=== PATIENT | female | born 1930 | race Caucasian/White ===

== ENCOUNTER 2016-11-29 15:10 | Inpatient (IN) | payer OTHER ==
[~2016-11-29] VITALS: Ht 160 cm; Wt 69.8 kg
[~2016-11-29 15:10] MED LIST: AMLODIPINE BESYL5 MG PO; ASCORBIC ACID500 M3 PO; ASPIR 8181 M1 PO; BISACODYL5 MG PO; BUPROPION HCL150 M2 PO; BUPROPION HCL75 MG PO; CALCIUM CARB1 TABLET PO; CYANOCOBALAM1000 MCG PO; DAILY VITE1 EAC1 PO; FLAGYL500 MG PO; FLEXERIL10 MG PO; FOLIC ACID1 MG PO; LANOXIN,DIGI0.125 MG PO; LANOXIN125 MCG PO; LASIX20 MG PO; LEVEMIR FL100 UNIT/1 SC; LEVEMIR100 UNIT/2 SC; LIDOCAINE700 MG TD; LIPITOR20 MG PO; LO-DOSE ASPIRIN81 M1 PO; LOPRESSOR50 MG PO; LOSARTAN POTAS100 MG PO; LOVENOX40 MG/0.4 SC; LYRICA100 MG PO; LYRICA150 MG PO; MILK OF MAGNESI10 ML PO; MYSOLINE50 MG PO; NORCO 5/3251 TABLET PO; NORVASC5 MG PO; OXYCODONE HCL5 MG PO; Ocean Nasal 0.65% NS; PANTOPRAZOLE SO40 MG PO; PLAVIX75 MG PO; PREDNISONE5 MG PO; PROTONIX40 MG PO; PROVENTIL,2.5 MG/0.5 AEROSOL; SENNA8.6 MG PO; TAMIFLU75 MG PO; THERAGRAN1 TABLET PO; TOPROL XL50 MG PO; TORSEMIDE20 MG PO; TYLENOL EXTRA500 MG PO; TYLENOL REGULA325 MG PO; VENTOLIN HFA18 GM IH; VITAMIN B12-FO1 EACH PO; VITAMIN D32000 UNI1 PO; VITAMIN D50000 UNI2 PO; WELLBUTRIN SR150 MG PO; ZESTRIL,PRINIVI10 MG PO
[2016-11-29 16:17] LABS: HEMATOCRIT 36.7 % (36.0-46.0); MCH 32.5 PG (29.0-34.0); MCV 98.7 FL (83-99); PLATELET COUNT 100 K/uL (156-360); RBC DIS.WIDTH-CV 14.3 % (11.8-14.6); RBC DIS.WIDTH-SD 51.8 % (39-53); RED BLOOD COUNT 3.72 M/uL (3.80-5.20); WHITE BLOOD COUNT 20.9 K/uL (4.1-10.2)
[2016-11-29 16:26] LABS: CHLORIDE 103 mEq/L (99-109); POTASSIUM 3.8 mEq/L (3.7-5.4); SODIUM 145 mEq/L (136-147)
[2016-11-29 16:28] LABS: GLUCOSE 216 mg/dL (70-99)
[2016-11-29 16:29] LABS: ANION GAP 14 MEQ/L (2-14)
[2016-11-29 16:30] LABS: TOTAL BILIRUBIN 0.5 mg/dL (0.0-1.0)
[2016-11-29 16:32] LABS: ALKALINE PHOSPHATASE 51 IU/L (3-129); GFR ESTIMATE (CALCULATED) 50 mL/min/
[2016-11-29 16:33] LABS: UREA NITROGEN (BUN) 17 mg/dL (9-23)
[2016-11-29 16:35] LABS: LIPASE 5 U/L (1.0-51.0)
[2016-11-29 19:42] LABS: ADD MIUA? YES; BILIRUBIN NEGATIVE; BLOOD NEGATIVE; COLOR YELLOW ((YELLOW)); GLUCOSE (STRIP) NEGATIVE; KETONES NEGATIVE; LEUKOCYTES NEGATIVE; NITRITE NEGATIVE; PROTEIN (STRIP) 30; SPECIFIC GRAVITY 1.015 (1.000-1.030); UROBILINOGEN 0.2 MG/DL (0.2-1.0)
[2016-11-29 19:49] LABS: BACTERIA 3+ /HPF; EPITHELIAL CELLS RARE /HPF; MUCUS TRACE /LPF; RED BLOOD CELLS 0-5 /HPF (0-5); UCUL ADDED? YES
[2016-11-29] MEDS ORDERED: PANTOPRAZOLE SO40 MG PO (22:34)
[2016-11-29] MEDS ORDERED: LYRICA100 MG PO ×3 (22:35→23:58)
[2016-11-29] MEDS ORDERED: PRIMIDONE50 MG PO (22:35)
[2016-11-29] MEDS ORDERED: TORSEMIDE20 MG PO (22:35)
[2016-11-29] MEDS ORDERED: GLIPIZIDE XL5 MG PO (22:35)
[2016-11-29] MEDS ORDERED: LEVEMIR FL100 UNIT/1 SC ×5 (22:36→23:56)
[2016-11-29] MEDS ORDERED: COMBIVENT RESPIM4 GM IH (22:37)
[2016-11-29] MEDS ORDERED: FLONASE16 G1 BOTH NARES (22:37)
[2016-11-29] MEDS ORDERED: PROMETHAZINE12.5 M1 PO (22:38)
[2016-11-29 23:08] VITALS: BP 131/59
[2016-11-29] MEDS ORDERED: LYRICA150 MG PO (23:58)
[2016-11-30] VITALS (8 sets, daily range): BP systolic 122–145; BP diastolic 58–67
[2016-11-30 07:11] LABS: HEMATOCRIT 31.4 % (36.0-46.0); MCH 33.7 PG (29.0-34.0); MCHC 32.8 G/DL (30.0-36.0); MCV 102.6 FL (83-99); MEAN PLAT.VOLUME 12.6 uM^3 (9.5-12.4); PLATELET COUNT 81 K/uL (156-360); RBC DIS.WIDTH-CV 14.5 % (11.8-14.6); RED BLOOD COUNT 3.06 M/uL (3.80-5.20); WHITE BLOOD COUNT 9.5 K/uL (4.1-10.2)
[2016-11-30 08:29] LABS: ANION GAP 9 MEQ/L (2-14); CHLORIDE 104 MEQ/L (99-109); GFR ESTIMATE (CALCULATED) > 59 mL/min/; GLUCOSE 140 mg/dL (70-99); POTASSIUM 3.5 MEQ/L (3.7-5.4); SAMPLE HEMOLYSIS CHECK 0; SAMPLE ICTERIC CHECK 0; SAMPLE LIPEMIA CHECK 0; SODIUM 144 MEQ/L (136-147); UREA NITROGEN (BUN) 14 mg/dL (9-23)
[2016-11-30 10:45] LABS: Estimated Average Glucose 180 mg/dL (70-123); HEMOGLOBIN A1c (GLYCOHEMOGLOB) 7.9 % HGB (Below 5.7)
[2016-11-30 11:14] LABS: FERRITIN 140 NG/ML (10-291)
[2016-11-30 12:05] LABS: POINT-OF-CARE METER ID UU14208750
[2016-11-30 12:36] LABS: ABSOLUTE RETICULOCYTE CT. 0.1 M/uL (0.02-0.08); IMM.RETIC FRACTION 12.1 % (3-19); RETIC HGB EQUIVALENT 33.5 (28-36); RETICULOCYTE COUNT 1.9 % (0.5-1.8)
[2016-11-30 14:03] LABS: IRON 16 MCG/DL (35-150)
[2016-11-30 16:25] LABS: POINT-OF-CARE METER ID UU14208750
[2016-11-30 21:36] LABS: POINT-OF-CARE METER ID UU14208750
[2016-12-01 06:14] LABS: EOSINOPHIL (%) 1.5 % (0-5); EOSINOPHIL COUNT 0.1 K/uL (0-0.3); HEMATOCRIT 29.1 % (36.0-46.0); IMMATURE GRANULOCYTE (%) 0.5 % (0.0-0.7); LYMPHOCYTE COUNT 1.1 K/uL (1.0-2.8); MCH 34.2 PG (29.0-34.0); MCV 103.6 FL (83-99); MEAN PLAT.VOLUME 12.8 uM^3 (9.5-12.4); MONOCYTE (%) 6.6 % (3-12); MONOCYTE COUNT 0.5 K/uL (0-0.8); NEUTROPHIL (%) 76.7 % (45-76); PLATELET COUNT 91 K/uL (156-360); RBC DIS.WIDTH-CV 14.2 % (11.8-14.6); RBC DIS.WIDTH-SD 53.9 % (39-53); RED BLOOD COUNT 2.81 M/uL (3.80-5.20); WHITE BLOOD COUNT 7.8 K/uL (4.1-10.2)
[2016-12-01 06:35] LABS: ALKALINE PHOSPHATASE 38 IU/L (3-129); ANION GAP 7 MEQ/L (2-14); CHLORIDE 107 MEQ/L (99-109); GFR ESTIMATE (CALCULATED) > 59 mL/min/; GLUCOSE 125 mg/dL (70-99); SAMPLE HEMOLYSIS CHECK 0; SAMPLE ICTERIC CHECK 0; SAMPLE LIPEMIA CHECK 0; SODIUM 143 MEQ/L (136-147); TOTAL BILIRUBIN 0.4 MG/DL (0.0-1.0); UREA NITROGEN (BUN) 13 mg/dL (9-23)
[2016-12-01 06:45] LABS: POINT-OF-CARE METER ID UU14208750
[2016-12-01 07:12] VITALS: BP 143/66
[2016-12-01 09:20] LABS: INTER. NORMALIZED RATIO 1.3; PROTHROMBIN TIME 14.5 SEC (10.2-12.9)
[2016-12-01 09:23] LABS: PTT 46.4 SEC (25-37)
[2016-12-01 10:55] LABS: BASE EXCESS 6.3 mEq/L (-3 to +3); BICARBONATE 30.6 mEq/L (22-26); CARBOXY HGB 2.1 % (0-5); METHEMOGLOBIN 1.4 % (0-1.5); PCO2 42 mm Hg (35-45); PO2 59 mm Hg (80-100); pH 7.47 (7.35-7.45)
[2016-12-01 10:56] LABS: COMMENTS - BLOOD GASES +C; DEVICE NC; O2 FLOW 6 L/MIN; SITE RR +A; TOTAL RESP RATE 24 resp/min
[2016-12-01 11:45] VITALS: BP 151/72
[2016-12-01 11:52] LABS: POINT-OF-CARE METER ID UU14208750
[2016-12-01 12:05] LABS: TROP-I INTERPRETATION POSITIVE
[2016-12-01 12:12] LABS: TROPONIN-I 1.23 ng/mL (0.0-0.30)
[2016-12-01 15:25] VITALS: BP 146/87
[2016-12-01 16:17] LABS: POINT-OF-CARE METER ID UU13113698
[2016-12-01 18:32] LABS: INTER. NORMALIZED RATIO 1.3; PROTHROMBIN TIME 14.4 SEC (10.2-12.9)
[2016-12-01 18:35] LABS: PTT 67.1 SEC (25-37)
[2016-12-01 18:42] LABS: TROP-I INTERPRETATION POSITIVE; TROPONIN-I 0.98 ng/mL (0.0-0.30)
[2016-12-01 20:40] VITALS: BP 159/65
[2016-12-02] VITALS (7 sets, daily range): BP systolic 134–174; BP diastolic 58–76
[2016-12-02 05:26] LABS: INTER. NORMALIZED RATIO 1.3; PROTHROMBIN TIME 14.2 SEC (10.2-12.9)
[2016-12-02 05:36] LABS: EOSINOPHIL (%) 0 % (0-5); HEMATOCRIT 29.5 % (36.0-46.0); IMMATURE GRANULOCYTE (%) 0.9 % (0.0-0.7); IMMATURE GRANULOCYTE COUNT 0.1 K/uL; INSTRUMENT ABS NEUTROPHIL CT 5.4 K/uL; LYMPHOCYTE COUNT 0.6 K/uL (1.0-2.8); MCH 33.7 PG (29.0-34.0); MCHC 33.2 G/DL (30.0-36.0); MCV 101.4 FL (83-99); MEAN PLAT.VOLUME 13.4 uM^3 (9.5-12.4); MONOCYTE (%) 4.9 % (3-12); MONOCYTE COUNT 0.3 K/uL (0-0.8); NEUTROPHIL (%) 84.4 % (45-76); NEUTROPHIL COUNT 5.4 K/uL (1.8-6.4); PLATELET COUNT 81 K/uL (156-360); RBC DIS.WIDTH-CV 13.8 % (11.8-14.6); RBC DIS.WIDTH-SD 51.4 % (39-53); RED BLOOD COUNT 2.91 M/uL (3.80-5.20); WHITE BLOOD COUNT 6.3 K/uL (4.1-10.2)
[2016-12-02 06:21] LABS: ALKALINE PHOSPHATASE 50 IU/L (3-129); ANION GAP 9 MEQ/L (2-14); CHLORIDE 105 MEQ/L (99-109); GFR ESTIMATE (CALCULATED) > 59 mL/min/; GLUCOSE 245 mg/dL (70-99); SAMPLE HEMOLYSIS CHECK 0; SAMPLE ICTERIC CHECK 0; SAMPLE LIPEMIA CHECK 0; SODIUM 141 MEQ/L (136-147); TOTAL BILIRUBIN 0.4 MG/DL (0.0-1.0); UREA NITROGEN (BUN) 14 mg/dL (9-23)
[2016-12-02 08:08] LABS: POINT-OF-CARE METER ID UU13113803; POINT-OF-CARE USER ID ENVKC36
[2016-12-02 12:02] LABS: POINT-OF-CARE USER ID ENVKC36
[2016-12-02 12:09] LABS: INTER. NORMALIZED RATIO 1.2; PROTHROMBIN TIME 13.8 SEC (10.2-12.9)
[2016-12-02 12:12] LABS: PTT 81.9 SEC (25-37)
[2016-12-02 13:38] LABS: TROP-I INTERPRETATION INDETERMINATE; TROPONIN-I 0.34 ng/mL (0.0-0.30)
[2016-12-02 16:38] LABS: POINT-OF-CARE USER ID ENVKC36
[2016-12-03 04:49] VITALS: BP 130/70
[2016-12-03 08:40] VITALS: BP 158/62
[2016-12-03 12:51] VITALS: BP 142/72
[2016-12-03 13:31] VITALS: BP 130/78
[2016-12-03 17:21] VITALS: BP 162/54
[2016-12-03 21:09] VITALS: BP 164/71
[2016-12-03 21:12] LABS: POINT-OF-CARE METER ID UU13113698
[2016-12-04 00:36] VITALS: BP 186/79
[2016-12-04 04:29] VITALS: BP 168/78
[2016-12-04 07:57] LABS: POINT-OF-CARE METER ID UU13113781
[2016-12-04 08:25] VITALS: BP 148/70
[2016-12-04 12:10] LABS: POINT-OF-CARE METER ID UU13113781
[2016-12-04 13:01] VITALS: BP 142/78
[2016-12-04 17:03] LABS: POINT-OF-CARE METER ID UU13113781
[2016-12-04 17:36] VITALS: BP 130/58
[2016-12-04 19:51] VITALS: BP 149/63
[2016-12-05] VITALS (7 sets, daily range): BP systolic 138–189; BP diastolic 60–93
[2016-12-05 06:10] LABS: EOSINOPHIL (%) 0.3 % (0-5); HEMATOCRIT 29.4 % (36.0-46.0); IMMATURE GRANULOCYTE COUNT 0.1 K/uL; INSTRUMENT ABS NEUTROPHIL CT 4.7 K/uL; LYMPHOCYTE COUNT 0.7 K/uL (1.0-2.8); MCH 33.3 PG (29.0-34.0); MCHC 33.7 G/DL (30.0-36.0); MONOCYTE (%) 7.3 % (3-12); MONOCYTE COUNT 0.4 K/uL (0-0.8); NEUTROPHIL (%) 78.7 % (45-76); NEUTROPHIL COUNT 4.7 K/uL (1.8-6.4); RBC DIS.WIDTH-CV 13.4 % (11.8-14.6); RBC DIS.WIDTH-SD 48.3 % (39-53); RED BLOOD COUNT 2.97 M/uL (3.80-5.20); WHITE BLOOD COUNT 5.9 K/uL (4.1-10.2)
[2016-12-05 06:13] LABS: PLATELET COUNT 106 K/uL (156-360)
[2016-12-05 06:14] LABS: ANION GAP 8 MEQ/L (2-14); CHLORIDE 103 MEQ/L (99-109); GFR ESTIMATE (CALCULATED) > 59 mL/min/; GLUCOSE 202 mg/dL (70-99); POTASSIUM 4.4 MEQ/L (3.7-5.4); SAMPLE HEMOLYSIS CHECK 0; SAMPLE ICTERIC CHECK 0; SAMPLE LIPEMIA CHECK 0; SODIUM 141 MEQ/L (136-147)
[2016-12-05 06:18] LABS: UREA NITROGEN (BUN) 22 mg/dL (9-23)
[2016-12-05 11:20] LABS: POINT-OF-CARE METER ID UU13113698
[2016-12-05 20:56] LABS: POINT-OF-CARE METER ID UU13113698
[2016-12-06 03:26] VITALS: BP 138/70
[2016-12-06 07:42] LABS: POINT-OF-CARE METER ID UU13113781
[2016-12-06 07:59] VITALS: BP 150/67
[2016-12-06 09:18] LABS: MCH 33.9 PG (29.0-34.0); MCHC 34.1 G/DL (30.0-36.0); MCV 99.4 FL (83-99); MEAN PLAT.VOLUME 12.6 uM^3 (9.5-12.4); NRBC (%) 0.2 /100 WBC (0-0); RBC DIS.WIDTH-CV 13.7 % (11.8-14.6); RBC DIS.WIDTH-SD 49.7 % (39-53); RED BLOOD COUNT 3.42 M/uL (3.80-5.20); WHITE BLOOD COUNT 10.3 K/uL (4.1-10.2)
[2016-12-06 09:22] LABS: PLATELET COUNT 140 K/uL (156-360)
[2016-12-06 10:14] LABS: ANION GAP 10 MEQ/L (2-14); CHLORIDE 103 MEQ/L (99-109); GFR ESTIMATE (CALCULATED) > 59 mL/min/; POTASSIUM 3.9 MEQ/L (3.7-5.4); SAMPLE HEMOLYSIS CHECK 0; SAMPLE ICTERIC CHECK 0; SAMPLE LIPEMIA CHECK 0; SODIUM 143 MEQ/L (136-147); UREA NITROGEN (BUN) 20 mg/dL (9-23)
[2016-12-06 10:16] LABS: GLUCOSE 107 mg/dL (70-99)
[2016-12-06 11:35] VITALS: BP 167/70
[2016-12-06 12:08] LABS: POINT-OF-CARE METER ID UU13113781
[2016-12-06 15:38] VITALS: BP 142/60
[2016-12-06 16:27] LABS: POINT-OF-CARE METER ID UU13113781
[2016-12-06 19:30] VITALS: BP 132/59
[2016-12-06 23:45] VITALS: BP 147/65
[2016-12-07 03:30] VITALS: BP 142/66
[2016-12-07 05:50] LABS: MCH 32.9 PG (29.0-34.0); MCHC 32.9 G/DL (30.0-36.0); MEAN PLAT.VOLUME 13.1 uM^3 (9.5-12.4); PLATELET COUNT 140 K/uL (156-360); RBC DIS.WIDTH-CV 13.7 % (11.8-14.6); RBC DIS.WIDTH-SD 49.8 % (39-53); WHITE BLOOD COUNT 7.5 K/uL (4.1-10.2)
[2016-12-07 06:19] LABS: ANION GAP 9 MEQ/L (2-14); CHLORIDE 104 MEQ/L (99-109); GFR ESTIMATE (CALCULATED) > 59 mL/min/; GLUCOSE 140 mg/dL (70-99); POTASSIUM 4.2 MEQ/L (3.7-5.4); SAMPLE HEMOLYSIS CHECK 1; SAMPLE ICTERIC CHECK 0; SAMPLE LIPEMIA CHECK 0; SODIUM 140 MEQ/L (136-147); UREA NITROGEN (BUN) 24 mg/dL (9-23)
[2016-12-07 07:21] VITALS: BP 151/69
[2016-12-07 11:33] LABS: POINT-OF-CARE METER ID UU13113803
[2016-12-07 11:35] VITALS: BP 151/65
[2016-12-07] MEDS ORDERED: CEFDINIR300 MG PO (12:10)
[2016-12-07] MEDS ORDERED: GUAIFENESIN WI120 M1 PO (12:14)
[2016-12-07] MEDS ORDERED: BENZONATATE100 MG PO (12:14)
[2016-12-07] MEDS ORDERED: ADVAIR HFA120 INHALA IH (12:14)
[2016-12-07] MEDS ORDERED: PREDNISONE20 MG PO (12:21)
[2016-12-07] MEDS ORDERED: OXYGEN MC (12:30)
[2016-12-07] MEDS ORDERED: NORCO 5/3251 TABLET PO (12:45)
== END 2016-12-07 15:26 | DRG 190 ==
LOC: EME 15:10 → 2EAST 21:30 → EDOF 21:30 → ENRESERV 21:31 → 2EAST 22:34 → ENRESERV 12-01 13:33 → 4EAST 12-01 15:20
PROVIDERS: Hospitalist; Internal Medicine; Physician Assistant; Radiology Diagnostic Radiology; Student in an Organized Health Care Education/Training Program
DX: J44.0 Chronic obstructive pulmonary disease with (acute) lower respiratory infection (principal); J18.1 Lobar pneumonia, unspecified organism; J44.1 Chronic obstructive pulmonary disease with (acute) exacerbation; E11.9 Type 2 diabetes mellitus without complications; J96.01 Acute respiratory failure with hypoxia; I11.0 Hypertensive heart disease with heart failure; I42.9 Cardiomyopathy, unspecified; D69.6 Thrombocytopenia, unspecified; C25.9 Malignant neoplasm of pancreas, unspecified; I50.42 Chronic combined systolic (congestive) and diastolic (congestive) heart failure; I21.4 Non-ST elevation (NSTEMI) myocardial infarction; J20.9 Acute bronchitis, unspecified; C78.7 Secondary malignant neoplasm of liver and intrahepatic bile duct; E11.51 Type 2 diabetes mellitus with diabetic peripheral angiopathy without gangrene; E78.5 Hyperlipidemia, unspecified; I25.10 Atherosclerotic heart disease of native coronary artery without angina pectoris; K21.9 Gastro-esophageal reflux disease without esophagitis; I25.2 Old myocardial infarction; Z79.4 Long term (current) use of insulin; Z79.899 Other long term (current) drug therapy; Z79.82 Long term (current) use of aspirin; Z86.73 Personal history of transient ischemic attack (TIA), and cerebral infarction without residual deficits; Z87.891 Personal history of nicotine dependence; Z90.49 Acquired absence of other specified parts of digestive tract; Z96.649 Presence of unspecified artificial hip joint; Z95.810 Presence of automatic (implantable) cardiac defibrillator; Z83.3 Family history of diabetes mellitus; Z95.5 Presence of coronary angioplasty implant and graft
CPT/HCPCS: 36600; 70450; 71020; 71275; 74177; 80048; 80053; 80162; 81003; 82607; 82728; 82746; 82803; 82948; 83036; 83540; 83605; 83690; 83880; 84466; 84484; 85025; 85027; 85045; 85610; 85730; 87040; 87086; 87493; 93005; 93306; 94010; 94640; 94640 76; 94799; 97530 GP; 99202; 99281; 99285; J0360; J0456; J0692; J0696; J1644; J1815; J2405; J2920; J7030; J7050; J7120; J7512; Q0169